=== PATIENT | female | born 1970 | race Caucasian/White ===

== ENCOUNTER 2023-12-22 06:37 | Outpatient (RCR) | payer BC, SELFPAY | END 2023-12-22 23:59 | disposition home or self-care (01) | LOC: RPT 06:37 | PROVIDERS: ATTENDING PHYSICIAN Family Medicine | DX: M25.511 Pain in right shoulder (principal); M25.512 Pain in left shoulder; Z73.6 Limitation of activities due to disability | CPT/HCPCS: 97110; 97162 ==

== ENCOUNTER → 2023-12-30 06:28 | Day surgery (SDC) | payer BC, SELFPAY | LOC: GI 06:28 | PROVIDERS: ATTENDING PHYSICIAN Internal Medicine Gastroenterology; FAMILY PHYSICIAN Family Medicine | DX: Z12.11 Encounter for screening for malignant neoplasm of colon (principal); Z86.010 Personal history of colon polyps; K64.8 Other hemorrhoids; K57.30 Diverticulosis of large intestine without perforation or abscess without bleeding; D12.4 Benign neoplasm of descending colon | CPT/HCPCS: 45380; 88305 ==

== ENCOUNTER 2024-07-30 11:30 | Inpatient (IN) | payer BC, SELFPAY ==
[2024-07-30] VITALS (54 sets, daily range): BP systolic 86–126; BP diastolic 51–84
--- NOTE | 2024-07-30 09:35 | ED.GENMED ---
History of Present Illness
<Christal Mccurdy PA-C - Last Filed: 07/30/24 14:46>
General
Chief Complaint: Fainting/Passed Out
Source: patient
Time Seen by Provider: 07/30/24 09:22
History of Present Illness
History of Present Illness:
54yoF with a history of depression and recent abdominoplasty procedure 6 days ago presenting via EMS for evaluation after a syncopal episode. Patient was feeling well when she woke up this morning and was able to do some chores around the house.
Patient was walking when she had a sudden onset of lightheadedness and diaphoresis. Patient felt like she could not catch her breath. She got her phone to call 911 and then had a syncopal episode. Episode was unwitnessed so unclear how long she
was unconscious for. Patient currently reports shortness of breath and chest pain. She does report left calf pain earlier today prior to her dizziness beginning. Patient had an abdominoplasty procedure [address] Gutierrez. Her only current
medications are Prozac and estradiol.
Past History
<Christal Mccurdy PA-C - Last Filed: 07/30/24 14:46>
Past History
ED Past Medical History: Psychiatric (Anxiety disorder)
ED Past Surgical History:
Social History
Tobacco: Non-smoker
Alcohol: None
Drug: None
Phy Exam
<Christal Mccurdy PA-C - Last Filed: 07/30/24 14:46>
Physical Exam
Physical Exam:
Ill appearing, pale
General Physical Exam
General Presentation: moderate distress
General Skin: dry and cool (Upper extremities cool to touch)
General Mental: alert
ENT Exam
ENT Exam: normocephalic
Cardiovascular Exam
Cardiovascular Exam: tachycardia
Pulmonary Exam
Pulmonary Exam: lungs clear, no rales, no crackles, no rhonchi, no wheezing and decreased breath sounds
Gastrointestinal Exam
Gastrointestinal Exam: soft, non distended and other (Appropriate tenderness s/p abdominoplasty. Incisions c/d/i. YEVGENIY drains in place with serosang output.)
Harvey Coma Scale
Eye Opening: Spontaneous
Verbal Response: Oriented
Motor Response: Obeys Commands
GCS Total Score: 15
Skin Exam
Skin Exam: pallor
Course
<Christal Mccurdy PA-C - Last Filed: 07/30/24 14:46>
Orders/Labs/Results
Orders:
Orders
07/30/24 09:16
Electrocardiogram (*1) Urgent
Reason for Study: Syncope
EKG- Treatment ONCE
07/30/24 09:32
CT Pe/abd/pel W Urgent
Comment:
Reason For Exam: Syncope, SOB, hypotension
07/30/24 09:34
0.9% Sodium Chloride 1000 ml [Nss] 1,000 ml IV BOLUS
07/30/24 09:36
CMP [Comprehensive Metabolic Panel] Urgent
Complete Blood Count/With Diff Urgent
NT-proBNP Urgent
Comment: ADD ON
PTT Urgent
Prothrombin Time Urgent
Troponin I Urgent
07/30/24 09:48
Propofol 1,000,000 Mcg/100 ml [Diprivan] 1,000,000 mcg in 100 ml .ROUTE .STK-MED
07/30/24 09:55
Heparin 5,300 units IV NOW STA
07/30/24 09:[address] Non Medication Order As Directed
Physician Order: PTT 6 hours after initial start of Heparin infusion
Above order entered?: Yes
07/30/24 09:59
0.9% Sodium Chloride 1000 ml [Nss] 1,000 ml IV BOLUS
07/30/24 10:00
Heparin 43846 Units/250 ml 25,000 units in 250 ml IV PER PROTOCOL
Weight to be used for heparin protocol in kilograms (kg):: 66.224
Protocol:: DVT/PE
PTT Goal Range to be used:: PTT 73 to 111 seconds
Order type:: Initial
INITIAL Infusion Dose (UNITS/KG/hr) & then follow protocol:: 18 units/kg/hr
Infusion Dose in UNITS/hr & then follow protocol (UNITS/hr):: 1,200
INFUSION RATE in mL/hr & then follow protocol (mL/hr):: 12
For DVT/PE algorithm, re-bolus for low PTT?: Yes
PTT less than or equal to 64 seconds:: Re-bolus 80 units/kg (max 10,000units). Increase by 300 units/hr
(+ 3mL/hr)
PTT 64.1 to 72.9 seconds:: Re-bolus 40 units/kg (max 5,000 units). Increase by 100 units/hr
(+ 1mL/hr)
PTT 73 to 111 seconds:: Target Range. No change in rate.
PTT 111.1 to 130.9 seconds:: Decrease rate by 100 units/hr (- 1 mL/hr)
PTT 131 to 199.9 seconds:: HOLD for 1 hr. Then decrease by 200 units/hr (- 2mL/hr)
PTT greater than or equal to 200 seconds:: HOLD for 2 hrs & Notify Provider. Then decrease by 300 units/hr
(- 3mL/hr)
Lab follow-up:: Each change, PTT q6h until 2 consecutive are therapeutic. Then
PTT daily.
07/30/24 10:09
Heparin 5,300 units IV PRN PRN
07/30/24 10:10
Heparin 2,600 units IV PRN PRN
07/30/24 10:20
Add On- LAB Stat
Tests Added?: proBNP
07/30/24 10:21
Type+Screen Urgent
07/30/24 10:23
Echo 2D MMode Color/Doppler Stat
Reason for Study: PE, syncope
07/30/24 10:43
ABO2 Urgent
BBK Wristband Number:
Associate notified that ABO2 has been ordered: [id number]
Date: 07/30/24
Time: 10:
Psychotherapist Social Worker ID: [id number]
07/30/24 11:10
Admit/Transfer Patient As Directed
Co-Sign Provider:
Level of Care: Inpatient admission
Assign to:: ICU
Physician / Group: pasricha/medicine
Diagnosis: b/l pe, submassive PE
Reason for Hospitalization: submassive pe
Expected length of stay greater than two midnights?: Yes
ELOS- Estimated Length of Stay in days: 3
I certify the patient meets the requirements for IP care: Yes
PRN Pain Medication Management As Directed
May give lesser potent ordered pain med per pt: Yes
preference::
Protocol:: Medication orders for pain may be administered in a
manner that supports deferring to patient preference
when the pt is:
- Requesting an ordered lesser potent pain medication.
Least to most potent pain medications are defined
as: acetaminophen < NSAID < tramadol < opioids
(morphine, oxycodone, hydromorphone).
- Requesting a lesser dose of the same medication IF
ORDERED.
- Requesting a less intrusive route of administration
if both routes are prescribed by the provider (PO <
IV).
07/30/24 11:13
Code Status As Directed
Resuscitation Status: Full Code
07/30/24 11:15
Alteplase [Cathflo/Activase] 5 mg Syringe [Syringe Non-Pump] 0 ml INTRAARTER IRAD
07/30/24 11:24
Consult Interventional Radiology [IRAD CONSULT] Urgent
Consulting Provider: Lex Hu
Was physician already notified: Yes
Reason for Consult/Procedure: PE
Acknowledgement that appropriate orders are entered: Yes
07/30/24 11:27
Heparin 1000 Units/500 ml [Heparin] 2,000 units in 1,000 ml .ROUTE .STK-MED
Lidocaine 2% [Xylocaine 2% Mdv] 20 ml .ROUTE .STK-MED ONE
07/30/24 12:00
0.9% Sodium Chloride 1000 ml [Nss] 990 ml Alteplase [Cathflo/Activase] 10 mg INF CATH 1 mg/hr
07/30/24 16:15
PTT Urgent
07/31/24 06:00
Hemoglobin A1c [Glycohemoglobin (HgbA1c)] IN AM
Abnormal Lab Results
07/30/24
09:36
WBC 14.6 H 10^3/uL
(4.8-10.8)
Hgb 10.1 L g/dL
(12.0-16.0)
Hct 31.5 L %
(37.0-47.0)
MCV 66.6 L fL
(81.0-99.0)
MCH 21.4 L pg
(27.0-31.0)
MCHC 32.1 L g/dL
(33.0-37.0)
RDW 14.9 H %
(11.5-14.5)
Abs Immat Gran (auto) 0.1 H 10^3/uL
(0-0.05)
Absolute Neuts (auto) 11.0 H 10^3/uL
(1.4-6.5)
Absolute Monos (auto) 0.9 H 10^3/uL
(0.1-0.6)
Neutrophils % 75.3 H %
(42.2-75.2)
Lymphocytes % 16.6 L %
(20.5-51.1)
Glucose 264 H mg/dl
(70-99)
Troponin I 0.114 H* ng/ml
Total Protein 5.6 L g/dl
(6.3-8.2)
07/30/24 09:36
07/30/24 09:36
Vital Signs
Initial and Last Documented VS:
Initial Vital Signs
Temp Pulse BP Pulse Ox
97.6 F 107 91/53 93
07/30/24 09:18 07/30/24 09:18 07/30/24 09:18 07/30/24 09:18
Last Documented Vital Signs
Temp Pulse Resp BP Pulse Ox
97.9 F 80 16 116/72 100
07/30/24 12:22 07/30/24 14:33 07/30/24 14:33 07/30/24 14:33 07/30/24 12:22
Froylt;Loc Avila, DO - Last Filed: 07/30/24 10:17>
Orders/Labs/Results
Orders:
Orders
07/30/24 09:16
Electrocardiogram (*1) Urgent
Reason for Study: Syncope
EKG- Treatment ONCE
07/30/24 09:32
CT Pe/abd/pel W Urgent
Comment:
Reason For Exam: Syncope, SOB, hypotension
07/30/24 09:34
0.9% Sodium Chloride 1000 ml [Nss] 1,000 ml IV BOLUS
07/30/24 09:36
CMP [Comprehensive Metabolic Panel] Urgent
Complete Blood Count/With Diff Urgent
NT-proBNP Urgent
Comment: ADD ON
PTT Urgent
Prothrombin Time Urgent
Troponin I Urgent
07/30/24 09:48
Propofol 1,000,000 Mcg/100 ml [Diprivan] 1,000,000 mcg in 100 ml .ROUTE .STK-MED
07/30/24 09:55
Heparin 5,300 units IV NOW STA
07/30/24 09:[address] Non Medication Order As Directed
Physician Order: PTT 6 hours after initial start of Heparin infusion
Above order entered?: Yes
07/30/24 09:59
0.9% Sodium Chloride 1000 ml [Nss] 1,000 ml IV BOLUS
07/30/24 10:00
Heparin 91650 Units/250 ml 25,000 units in 250 ml IV PER PROTOCOL
Weight to be used for heparin protocol in kilograms (kg):: 66.224
Protocol:: DVT/PE
PTT Goal Range to be used:: PTT 73 to 111 seconds
Order type:: Initial
INITIAL Infusion Dose (UNITS/KG/hr) & then follow protocol:: 18 units/kg/hr
Infusion Dose in UNITS/hr & then follow protocol (UNITS/hr):: 1,200
INFUSION RATE in mL/hr & then follow protocol (mL/hr):: 12
For DVT/PE algorithm, re-bolus for low PTT?: Yes
PTT less than or equal to 64 seconds:: Re-bolus 80 units/kg (max 10,000units). Increase by 300 units/hr
(+ 3mL/hr)
PTT 64.1 to 72.9 seconds:: Re-bolus 40 units/kg (max 5,000 units). Increase by 100 units/hr
(+ 1mL/hr)
PTT 73 to 111 seconds:: Target Range. No change in rate.
PTT 111.1 to 130.9 seconds:: Decrease rate by 100 units/hr (- 1 mL/hr)
PTT 131 to 199.9 seconds:: HOLD for 1 hr. Then decrease by 200 units/hr (- 2mL/hr)
PTT greater than or equal to 200 seconds:: HOLD for 2 hrs & Notify Provider. Then decrease by 300 units/hr
(- 3mL/hr)
Lab follow-up:: Each change, PTT q6h until 2 consecutive are therapeutic. Then
PTT daily.
07/30/24 10:09
Heparin 5,300 units IV PRN PRN
07/30/24 10:10
Heparin 2,600 units IV PRN PRN
07/30/24 10:20
Add On- LAB Stat
Tests Added?: proBNP
07/30/24 10:21
Type+Screen Urgent
07/30/24 10:23
Echo 2D MMode Color/Doppler Stat
Reason for Study: PE, syncope
07/30/24 10:43
ABO2 Urgent
BBK Wristband Number:
Associate notified that ABO2 has been ordered: [id number]
Date: 07/30/24
Time: 10:29
Psychotherapist Social Worker ID: [id number]
07/30/24 11:10
Admit/Transfer Patient As Directed
Co-Sign Provider:
Level of Care: Inpatient admission
Assign to:: ICU
Physician / Group: pasricha/medicine
Diagnosis: b/l pe, submassive PE
Reason for Hospitalization: submassive pe
Expected length of stay greater than two midnights?: Yes
ELOS- Estimated Length of Stay in days: 3
I certify the patient meets the requirements for IP care: Yes
PRN Pain Medication Management As Directed
May give lesser potent ordered pain med per pt: Yes
preference::
Protocol:: Medication orders for pain may be administered in a
manner that supports deferring to patient preference
when the pt is:
- Requesting an ordered lesser potent pain medication.
Least to most potent pain medications are defined
as: acetaminophen < NSAID < tramadol < opioids
(morphine, oxycodone, hydromorphone).
- Requesting a lesser dose of the same medication IF
ORDERED.
- Requesting a less intrusive route of administration
if both routes are prescribed by the provider (PO <
IV).
07/30/24 11:13
Code Status As Directed
Resuscitation Status: Full Code
07/30/24 11:15
Alteplase [Cathflo/Activase] 5 mg Syringe [Syringe Non-Pump] 0 ml INTRAARTER IRAD
07/30/24 11:24
Consult Interventional Radiology [IRAD CONSULT] Urgent
Consulting Provider: Lex Hu
Was physician already notified: Yes
Reason for Consult/Procedure: PE
Acknowledgement that appropriate orders are entered: Yes
07/30/24 11:27
Heparin 1000 Units/500 ml [Heparin] 2,000 units in 1,000 ml .ROUTE .STK-MED
Lidocaine 2% [Xylocaine 2% Mdv] 20 ml .ROUTE .STK-MED ONE
07/30/24 12:00
0.9% Sodium Chloride 1000 ml [Nss] 990 ml Alteplase [Cathflo/Activase] 10 mg INF CATH 1 mg/hr
07/30/24 16:15
PTT Urgent
07/31/24 06:00
Hemoglobin A1c [Glycohemoglobin (HgbA1c)] IN AM
Abnormal Lab Results
07/30/24
09:36
WBC 14.6 H 10^3/uL
(4.8-10.8)
Hgb 10.1 L g/dL
(12.0-16.0)
Hct 31.5 L %
(37.0-47.0)
MCV 66.6 L fL
(81.0-99.0)
MCH 21.4 L pg
(27.0-31.0)
MCHC 32.1 L g/dL
(33.0-37.0)
RDW 14.9 H %
(11.5-14.5)
Abs Immat Gran (auto) 0.1 H 10^3/uL
(0-0.05)
Absolute Neuts (auto) 11.0 H 10^3/uL
(1.4-6.5)
Absolute Monos (auto) 0.9 H 10^3/uL
(0.1-0.6)
Neutrophils % 75.3 H %
(42.2-75.2)
Lymphocytes % 16.6 L %
(20.5-51.1)
Glucose 264 H mg/dl
(70-99)
Troponin I 0.114 H* ng/ml
Total Protein 5.6 L g/dl
(6.3-8.2)
07/30/24 09:36
07/30/24 09:36
Vital Signs
Initial and Last Documented VS:
Initial Vital Signs
Temp Pulse BP Pulse Ox
97.6 F 107 91/53 93
07/30/24 09:18 07/30/24 09:18 07/30/24 09:18 07/30/24 09:18
Last Documented Vital Signs
Temp Pulse Resp BP Pulse Ox
97.9 F 80 16 116/72 100
07/30/24 12:22 07/30/24 14:33 07/30/24 14:33 07/30/24 14:33 07/30/24 12:22
<Christal Mccurdy PA-C - Last Filed: 07/30/24 14:46>
MDM/Problems Addressed
Differential Diagnosis Includes:
54yoF here after a syncopal episode this morning. Associated with CP and SOB. Recent abdominoplasty procedure 6 days ago. She is ill appearing and pale on exam. BP 86/51 on initial exam. She also reports L calf pain earlier today. High clinical
suspicion for acute pulmonary embolism. Likely saddle vs. high clot burden given syncopal episode.
Initial ED plan: IV access obtained and fluid bolus ordered. Cardiac labs and EKG obtained. Patient transported directly to CT for PE study after exam given acuity of illness.
<Christal Mccurdy PA-C - Last Filed: 07/30/24 14:46>
*EKG
Interpreted by ED Provider?: Yes
EKG Intrepretation Date: 07/30/24
Heart Rate: 99
Rate: normal
Rhythm: sinus
[place]: normal axis
Interval: normal interval
QRS Pattern: right bundle branch block (incomplete)
Ischemia: non-specific ST changes
*Critical Care Note
Total Time (30-74mins, 75-104mins- exclusive of procedures): 60
<Christal Mccurdy PA-C - Last Filed: 07/30/24 14:46>
Update Note
Update Note:
Dr. Avila called to CT due to clinical decompensation. Patient became acutely hypoxic in CT. CT shows saddle PE with large clot burden bilaterally. Respiratory called to bedside and she was placed on HFNC. IV heparin ordered with bolus. PERT
alert called. Plan for catheter directed thrombolysis by IR. Patient and sister updated on care plan. She was admitted for further management. BP stable at time of admission.
ED Attending Note
<Christal Mccurdy PA-C - Last Filed: 07/30/24 14:46>
-
Portions of this chart may have been created with voice recognition software.� Occasional wrong word or��sound alike� substitutions may have occurred due to the inherent limitations of voice recognition software.
<Loc Avila, - Last Filed: 07/30/24 10:17>
ED Attending Note
Patient seen and examined by attending physician: Yes
I performed the substantive portion of visit, reviewed & personally made and approve the management plan that is documented in note by myself or KAMAR.: Yes
ED Attending Note:
Patient presents with sob, dizziness and syncopal episode. Patient had abdominoplasty performed about 6 days ago. Currently patient is short of breath.
General: Awake, Alert, Oriented X3. poor color, appears ill
Vitals: Tachycardic, hypoxic
Head: Atraumatic
Eyes: Pupils equal, EOMI
Throat: Airway intact, no exudates
Neck: Trachea midline
Lungs: Clear and equal b/l
Heart: Regular rate, no murmurs
Abd: Soft, incisional tenderness, YEVGENIY drain no pulsatile mass
Neuro: Nonfocal
Skin: Warm, dry, no rash
Extremities: pulses equal b/l, no edema
1015 am. Patient seen by Kelin upon arrival. Patient sent immediately to CT because she had a high suspicion for PE. CT does show bilateral PE with significant clot burden, saddle embolus on the right and heart strain. Patient is hypoxic.
Fortunately she has not become hypotensive at this point. Immediately returning from CAT scan a PERT alert was called. Heparin was ordered. I communicated with Dr. Hu and Dr. Johnson and communicated the patient is critically ill and that
she might be a good candidate for catheter directed thrombolysis. They are reviewing the patient's imaging and will come evaluate the patient promptly. Patient currently receiving oxygen via high flow nasal cannula as well as a nonrebreather with
pulse ox in the high 80s. I do not believe intubation would help as this is a VQ mismatch that will exist regardless of intubation or not. The processes and the patient is likely to negatively affect her hemodynamics. Will therefore just support
her as much as possible with supplemental oxygen.
Discharge Plan
Departure
Patient Disposition: Admit
Date of Disposition: 07/30/24
Time of Disposition: 10:41
Presentation/result/management discussed w/ accepting MD/DO: Hospitalist
Discharge Problem:
Acute saddle pulmonary embolus, Syncope
Interventions
Interventions:
*Risk Screen - Suicide Last Done: 07/30/24 09:18
*General Assessment Last Done: 07/30/24 09:18
*Neglect/Abuse Screening Last Done: 07/30/24 09:18
ED- Fall Risk Assessment Last Done: 07/30/24 09:18
*ED COVID-19 Vaccine History Last Done: 07/30/24 09:18
*Nursing Disposition Last Done: 07/30/24 11:45
ED- Cardiac Assessment Last Done: 07/30/24 09:59
ED- Neurological Assessment Last Done: 07/30/24 10:30
Discharge Date and Time
Discharge Date/Time: 07/30/24 11:45
[2024-07-30 09:47] LABS: % Basophils 0.4 % (0-2); % Eosinophils 0.8 % (0-6); % Immature Granulocytes 0.5 % (0-0.5); % Lymphocytes 16.6 % (20.5-51.1); % Monocytes 6.4 % (1.7-9.3); % Neutrophils 75.3 % (42.2-75.2); Absolute Basophils 0.1 10^3/uL (0-0.2); Absolute Eosinophils 0.1 10^3/uL (0-0.7); Absolute Immature Granulocytes 0.1 10^3/uL (0-0.05); Absolute Lymphocytes 2.4 10^3/uL (1.2-3.4); Absolute Monocytes 0.9 10^3/uL (0.1-0.6); Hematocrit 31.5 % (37.0-47.0); Hemoglobin 10.1 g/dL (12.0-16.0); Mean Corp Hgb Conc. 32.1 g/dL (33.0-37.0); Mean Corpuscular Hgb 21.4 pg (27.0-31.0); Mean Corpuscular Volume 66.6 fL (81.0-99.0); Mean Platelet Volume 9.5 fL (7.4-10.4); Nucleated Red Blood Cells % 0 %; Platelet Count 161 10^3/uL (130-400); Red Blood Cell Count 4.73 10^6/uL (4.20-5.40); Red Cell Dist. Width 14.9 % (11.5-14.5); White Blood Cell Count 14.6 10^3/uL (4.8-10.8)
[2024-07-30 09:59] LABS: APTT 24.2 Sec (23.4-35.0)
[2024-07-30] MEDS: HEPARIN 5300 UNITS IV (10:01)
[2024-07-30] MEDS: NSS 1000 IV (10:02)
[2024-07-30 10:03] LABS: ALT (SGPT) 28 U/L (0-35); AST (SGOT) 34 U/L (14-36); Albumin 3.5 g/dl (3.5-5.0); Alkaline Phosphatase 53 U/L (38-126); Blood Urea Nitrogen 11 mg/dl (7-17); Calcium 8.5 mg/dl (8.4-10.2); Carbon Dioxide 22 mmol/L (22-30); Chloride 104 mmol/L (98-107); Glucose 264 mg/dl (70-99); Potassium 4.2 mmol/L (3.5-5.1); Sodium 137 mmol/L (135-145); Total Protein 5.6 g/dl (6.3-8.2); eGFR > 60.00
--- NOTE | 2024-07-30 10:12 | CON.INTV ---
Consultation
Consultation Request
Date/Time Consultation Requested: 07/30/2024 - 1000
Date/Time Consultation Performed: 07/30/20241004
Requesting Provider: Dr. Avila
Performing Provider: Dr. Johnson
Reason for Consultation: PERT Alert
Medical History
-
Chief Complaint: Passed out at home
History of Present Illness:
54-year-old female non-smoker with a past medical history of depression, anxiety, chronic seasonal allergic rhinitis, history of IBS with constipation, thalassemia minor minor, celiac disease, history of colon polyps, overactive bladder and recent
abdominoplasty 6 days ago now presents from home with syncopal event. She had a tummy tuck about 6-7 days ago. She says she woke up this morning and had some left lower calf pain, and then passed out at around 8:30 AM. In the ER she was afebrile
to 97.6 �F, tachycardic to 107, hypotensive to 91/53, and saturating 93% on 2 L/min nasal cannula. Labs showed leukocytosis to 14.6, anemia to 10.1, and hyperglycemic to 264. CTA chest, CT abdomen/pelvis with IV contrast was obtained. CTA chest
shows bilateral acute PE with large clot burden especially on the right with RV strain. Also hepatic + right renal cyst. PERT alert called. She was started on IV heparin.
When I saw the patient she was in bed, on high flow nasal cannula at 100% FiO2, 15 L/min and saturating 100%. Heart rate 96 and BP 111/82. She says her baseline SBP is around 95-100 mmHg. Her sister, Bhaskar, was at bedside -all questions were
answered. She currently feels okay although still has left-sided calf pain. She currently denies shortness of breath at rest, chest pain, GARCIA, nausea, fevers or chills. She does use oral contraceptives for menopause with combined estrogen +
progesterone. She denies a family history of DVT/PE. She had a recent abdominoplasty by Dr. Gutierrez with plastic surgery, which was done due to her having twins with diastasis recti.
PMHx: Depression, anxiety, recent abdominoplasty, chronic seasonal allergic rhinitis, history of IBS with constipation, thalassemia minor, celiac disease, overactive bladder, vitamin D deficiency, colon polyps
PSHx: History of , recent abdominoplasty 6 days ago
Past Medical History
Past Medical History: Other (Above as per HPI)
Past Surgical History: Other (Above as per HPI)
Social History
Tobacco: Former Smoker
Alcohol: Occasional
Drug: None
Family History
Family History: Cancer (Father: Basal cell carcinoma; paternal grandfather: Prostate cancer; Paternal grandmother: Lung cancer) and Other (Mother: Thalassemia; son: Thalassemia)
Allergies / Home Medications
Allergies
Allergy/AdvReac Type Severity Reaction Status Date / Time
codeine Allergy Itching Verified 08/14/19 22:10
gluten Allergy Itching Verified 08/14/19 22:10
pepper (genus Capsicum) Allergy Rash Verified 08/14/19 22:10
Home Medications
�Medication �Instructions �Recorded �Confirmed �Last Taken �Type
cefuroxime axetil 250 mg tablet 250 mg PO BID #14 tabs 08/15/19 Unknown Rx
Review of Systems
-
History Source: Patient
All other systems: Negative unless noted
Vitals / Labs / Diagnostic Testing
Vital Signs
Temp Pulse BP Pulse Ox
97.6 F 107 91/53 93
07/30/24 09:18 07/30/24 09:18 07/30/24 09:18 07/30/24 09:18
Lab Data
07/30/24 09:36
07/30/24 09:36
Diagnostic Testing:
Physical Exam
-
HEENT: Normocephalic and Anicteric
Cardiovascular: S1/S2 and Peripheral Edema (LLE trace edema; no edema on RLE)
Respiratory: Wheeze (negative), Rales (negative), Rhonchi (negative) and Non-Labored Respirations
GI: Soft, Non Distended, Tender (Generalized postoperative abdominal tenderness to palpation) and Normal Bowel Sounds
Neurology: AO x 3 and Tremors (negative)
Skin: Warm and Dry
General: Respiratory Distress (negative), Fever (negative) and Chills (negative)
Assessment
-
Assessment: 54-year-old female non-smoker with a past medical history of depression, anxiety, chronic seasonal allergic rhinitis, history of IBS with constipation, thalassemia minor minor, celiac disease, history of colon polyps, overactive bladder
and recent abdominoplasty 6 days ago now presents from home with syncopal event. She had a tummy tuck about 6-7 days ago. In the ER she was afebrile to 97.6 �F, tachycardic to 107, hypotensive to 91/53, and saturating 93% on 2 L/min nasal cannula.
Labs showed leukocytosis to 14.6, anemia to 10.1, and hyperglycemic to 264. CTA chest, CT abdomen/pelvis with IV contrast was obtained. CTA chest shows bilateral acute PE with large clot burden especially on the right with RV strain. Also
hepatic + right renal cyst. She was started on IV heparin, and PERT alert called. She is now being brought for IR intervention and then being admitted to the ICU for further monitoring. Health Center Manager/pulmonary service is consulted for additional
management/recommendations.
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
Impression:
#Acute massive bilateral pulmonary embolism with RV strain - suspect provoked due to combined oral contraceptive use with recent abdominoplasty
#Elevated troponin likely due to above
#Suspected LLE DVT
#Recent abdominoplasty s/p childbirth c/b diastasis recti
#Menopausal on combined oral contraceptives
#Leukocytosis likely reactive
#Anemia with history of thalassemia minor
#Borderline thrombocytopenia
#Hyperglycemia
Plan:
- Continue with IV heparin
- Stat echo to assess RV function and PA-pressures
- Consult IR for catheter directed thrombolysis
- Continue to trend troponin until it peaks
- Check LE duplex
- Eventual outpatient hematology evaluation for hypercoagulable workup
- Maintain SpO2 >90-94% and titrate down FiO2 and flow rate on HFNC as tolerated
- Maintain MAP>65
- Replete electrolytes with K>4, Mg>2
- Maintain euglycemia with goal BG 140-180
- Trend H/H and transfuse if needed to keep Hb>7g/dL; kep plt>20k, unless there is concern for bleeding then keep plt>50k
- prn nebulized bronchodilators - not currently bronchospastic
- Incentive spirometer encouraged 10x per hour for at least 4 hrs a day
- DVT ppx
Critical care statement: A total of 40 minutes of critical care time was provided for this patient today. This includes management of unstable vital signs, evaluation of the patient at bedside, reviewing the patient's pertinent medical records
including radiographs, microbiology, laboratory evaluations, and discussion with primary team, consultants, pharmacy, nutrition, physical therapy, case management, charge nurse, critical care nursing, and respiratory therapy.
Data:
CTA Chest/CT Abd/Pelvis with IV contrast 07/30/2024:
1).There are large bilateral central pulmonary emboli including a bandlike area of subtle embolus extending across the main pulmonary artery
2). There are hepatic and right renal cysts
[2024-07-30] MEDS: HEPARIN 25000 UNITS/250 ML IV (10:14)
[2024-07-30 10:19] LABS: Troponin I 0.114 ng/ml
[2024-07-30 11:07] LABS: NT-proBNP 591 pg/ml
[2024-07-30] MEDS: CATHFLO/ACTIVASE 1000 MG INF CATH ×2 (12:55→21:51)
--- NOTE | 2024-07-30 12:59 | W.PN.UPDATE ---
Update Note
Progress Note Update
- Catheter directed thrombolysis initiated. 10 cm long infusion catheter placed into R main pulmonary artery terminating in RLL artery which corresponds to most significant clot burden on CTA
- Pt tolerated well. Pulm artery pressure of 45/6 (map 24).
- Bolus dose of 5mg tPA given. tPA to be administered at 1 mg/hr, systemic heparin at 600 mL/hr.
- Plan for catheter check tomorrow morning.
- Please keep close attention to indwelling surgical drains, monitor for increasing bloody output
- Sister updated.
--- NOTE | 2024-07-30 13:35 | PTCARENOTE ---
Addendum entered by Tomasa Arguello RN 07/30/24 19:36:
Arrived to ICU with left calf > right calf. Good DP/PT pulses on the left foot, palpable DP on the right, weak palpable on the right PT but verified with doppler.
Original Note:
Pt arrived from [facility] via bed. Strict orders for her current position which is flat, with pillow under her right knee. She is awake and alert. HFNC 55liters/100% FiO2 with pulse ox 100%. Respiratory therapist at the bedside tapering oxygen as
ordered. Right AC#18g with Heparin at set rate of 600 units/hr. Right femoral 5fr venous sheath with bulky gauze dressing intact with alteplase @100ml/hr. Unable to run KVO in introducer, order in place. Left AC#18g pre-hospital site capped.
Lungs CTA anteriorly, no SOB, denies chest pain or numbness or tingling of her right lower extremity. +BSx4. Pt stated that since her surgery she has been moving her bowels QOD but typically daily. Orders for Sultana. Bladder scanned for 566ml's.
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 Right and Left lower abdominal YEVGENIY drains sutured in place. Drainage SS with R>L. Dr. Gutierrez
arrived at the bedside and stripped both YEVGENIY drains. He stated to strip them daily and to place antibiotic ointment on the umbilical sutures. He also ordered antibiotics that are to be continued from her abdominoplasty. Pt and her sister were
informed of the plan of care. Pt is aware to call for RN if Chest Pain, SOB, numbness or tingling occur. Safe environment maintained. Supportive care given.
--- NOTE | 2024-07-30 14:05 | W.PN.PLAS ---
Progress Note
Subjective Data
Pt seen and examined. Chart and studies reviewed. Discussion with IR Dr. Hu.
Pt POD 6 s/p abdominoplasty with suction assisted lipectomy waist. Post op course unremarkable. Seen in office POD 1 with drain totals appropriate and ambulating pain controlled.
Text me this am with fall LOC. Called 911. Transported to found to have hypoxia and PE. Pt relays feeling pain in the LLE calf this am and performed massage to this area prior to syncope. She noted pain in calf to be 'different.' Drain totals
steadily decreasing per patient - 'minimal' this am.
Objective Data
Vital Signs
Temp Pulse Resp BP Pulse Ox
97.9 F 87 16 125/80 100
07/30/24 12:22 07/30/24 13:00 07/30/24 13:00 07/30/24 13:00 07/30/24 12:22
Lab Results
07/30/24 09:36
07/30/24 09:36
Physical Exam
Wound:
Pt lying supine awake alert and oriented. Smiling. Respiratory Therapist changed from high flow to 6L and sats at 98% Incision CDI. Drains with scant sero sang. Compression garment previously removed.
Wound: Incision Intact: No
Surgical Site: Swelling: No and Hematoma: No
Assessment / Plan
POD 6 with PE.
IR and CC/ Pulmonary care much appreciated. IR states monitor right pressures. Re-eval in the morning.
Pt anticoagulated. Monitor drain output and clinical exam. Garment removed for IR procedure. Will re-apply once approved by IR.
Cont antibiotic proph with drains in. Pt was on Keflex 500mg bid as outpt.
Pain control.
--- NOTE | 2024-07-30 14:43 | HPS.HSE ---
Family Physician
-
Family Physician: Edd Arreola
Chief Complaint
-
Loss of consciousness, hypoxia
History of Present Illness
54-year-old female, non-smoker although on progesterone and estradiol, depression, anxiety, IBS, thalassemia minor, celiac disease, colon polyps, overactive bladder and recent abdominoplasty 6 days ago on prophylactic antibiotics now presents for
syncopal episode. Postop, patient began to feel left lower calf pain. Patient was massaging the area today and subsequently passed out approximately at 8:30 AM. Patient noted to be hypoxic in the 70s, saturating above 92% on high flow nasal
cannula, hypotensive 91/53, tachycardic 107 bpm, afebrile. Labs remarkable for white count of 14.6, hemoglobin 10.1, hyperglycemia 264. CT imaging had shown bilateral acute PE with large clot burden especially in the right with RV strain. Of note
also had hepatic and right renal cyst. PERT team was called, IV heparin initiated. Patient mentating well, speaking in full sentences, blood pressure improved. Family history of DVT/PE. Troponin 0.114, proBNP 5591. Cath directed thrombolysis
initiated, tolerated well. Will evaluate catheter check tomorrow.
Medical History
Past Medical History
Past Medical History: Reports Other ( Depression, anxiety, recent abdominoplasty, chronic seasonal allergic rhinitis, history of IBS with constipation, thalassemia minor, celiac disease, overactive bladder, vitamin D deficiency, colon polyps)
Past Surgical History: Reports Other
Additional Past Surgical History:
History of , recent abdominoplasty 6 days ago
Social History
Tobacco: Former Smoker
Alcohol: Occasional
Drug: None
Family History
Family History: Other (Cancer (Father: Basal cell carcinoma; paternal grandfather: Prostate cancer; Paternal grandmother: Lung cancer) and Other (Mother: Thalassemia; son: Thalassemia))
Allergies / Home Medications
Allergies reflects when Allergies were last updated in [employer].
Home Medications with original date entered in [employer]
Allergy/Medication List:
Allergies
Allergy/AdvReac Type Severity Reaction Status Date / Time
codeine Allergy Itching Verified 08/14/19 22:10
gluten Allergy Itching Verified 08/14/19 22:10
pepper (genus Capsicum) Allergy Rash Verified 08/14/19 22:10
Home Medications
cefuroxime axetil 250 mg tablet 250 mg PO BID #14 tabs 08/15/19
Prozac 07/30/24
estradiol 07/30/24
progesterone 07/30/24
trazodone 07/30/24
Review of Systems
-
History Source: Patient
A 12 point ROS was completed and negative except as noted: Yes
Physical Exam
Vital Signs
Vital Signs
Temp Pulse Resp BP Pulse Ox
97.9 F 80 16 116/72 100
07/30/24 12:22 07/30/24 14:33 07/30/24 14:33 07/30/24 14:33 07/30/24 12:22
Physical Exam
General: Well Developed, Well Nourished and No Apparent Distress
HEENT: NormoCephalic
Respiratory: Clear and Other (HFNC)
Cardiac: S1/S2 and Tachycardia
GI: Non Tender
Musculoskeletal: No Clubbing
Skin: Warm
Neuro: Awake, Alert, Oriented and AO x 3
Hematologic/Lymphatic: No Lymphadenopathy
Psych: Calm
Laboratory Results
-
07/30/24 09:36
07/30/24 09:36
Laboratory Results
PT 14.0 Sec (11.4-14.6) 07/30/24 09:36
INR 1.10 07/30/24 09:36
APTT 24.2 Sec (23.4-35.0) 07/30/24 09:36
Total Bilirubin 1.0 mg/dl (0.2-1.3) 07/30/24 09:36
AST 34 U/L (14-36) 07/30/24 09:36
ALT 28 U/L (0-35) 07/30/24 09:36
Alkaline Phosphatase 53 U/L (38-126) 07/30/24 09:36
Troponin I 0.114 ng/ml H* 07/30/24 09:36
Data Reviewed
-
CT Scan: Image Personally Visualized and interpreted and Report Reviewed by me
Lab Data: Labs Reviewed by me
Impression/Plan
-
IMPRESSION:
54-year-old female, non-smoker although on progesterone and estradiol, depression, anxiety, IBS, thalassemia minor, celiac disease, colon polyps, overactive bladder and recent abdominoplasty 6 days ago on prophylactic antibiotics now presents for
syncopal episode found to have b/l submassive PEs.
PLAN:
#Submassive pulmonary embolisms
� Culprit is recent postsurgical complication as well as being on progesterone/estradiol, family history
� CTA with bilateral acute PE with large clot burden, with evidence of RV strain on CT
� Catheter directed thrombolysis today 07/30
� Follow-up fibrinogen, continue heparin drip and tPA protocol
� Troponin 0.114, continue to trend until peak
� proBNP 591
� Follow-up echo
� Follow-up lower extremity Dopplers
� Follow-up hematological evaluation outpatient
� Pain control�will hold off on progesterone/estradiol until cleared by hematology outpatient
# Nonischemic troponin elevation
� Follow-up troponins, trend
� Echocardiogram
#Leukocytosis
� Mostly reactive
� Monitor fever curve, white count
#Abdominoplasty
- 6 days post op
� Plastic surgery on board
� Continue prophylactic antibiotics
#Hepatic and right renal cyst
� Follow-up outpatient
#DVT prophylaxis
� Heparin drip
[2024-07-30 18:59] LABS: PT 14.1 Sec (11.4-14.6)
[2024-07-30 19:00] LABS: APTT 33.5 Sec (23.4-35.0); Fibrinogen 409 MG/DL (199-459)
--- NOTE | 2024-07-30 19:01 | PTCARENOTE ---
Dr. Johnson notified that ultrasound of his right L/E cannot be performed due to strict limb restrictions. Ok for radio/tv technician to proceed with the left L/E ultrasound.
--- NOTE | 2024-07-30 20:00 | PTCARENOTE ---
Received pt via handoff. Pt AOx3, JOEL but has orders to remain flat and keep catheter extremity site straight. Pulses all present on palpation. 99% on 3 Liters midflow. Hypoactive bowel sounds, round and soft. Skin surgery sites documented on
flowsheet. YEVGENIY drains draining serous fluid. Right femoral 5fr venous sheath with bulky gauze dressing intact with alteplase @100ml/hr. Sultana catheter CDI draining clear yellow urine. Heparin gtt running see flowsheet. Family at bedside and call ocasio
within reach.
[2024-07-30] MEDS: KEFLEX 500 MG PO (20:13)
[2024-07-30 22:38] LABS: Hematocrit 27.4 % (37.0-47.0); Hemoglobin 9.2 g/dL (12.0-16.0)
[2024-07-30] MEDS: DESYREL 100 MG PO (23:16)
[2024-07-31] VITALS (25 sets, daily range): BP systolic 65–125; BP diastolic 47–84
--- NOTE | 2024-07-31 | PTCARENOTE ---
All systems reassessed, Pt in good spirits. No changes in status, will continue to monitor.
[2024-07-31 00:53] LABS: INR 1.13; PT 14.4 Sec (11.4-14.6)
[2024-07-31 00:54] LABS: Fibrinogen 383 MG/DL (199-459)
[2024-07-31] MEDS: TYLENOL 650 MG PO ×2 (03:46→09:48)
--- NOTE | 2024-07-31 04:16 | PTCARENOTE ---
Pt c/o lower back pain from lying flat so long. Tylenol given PO. Will continue to monitor.
[2024-07-31 05:38] LABS: Hematocrit 28.3 % (37.0-47.0); Hemoglobin 9.3 g/dL (12.0-16.0); Mean Corp Hgb Conc. 32.9 g/dL (33.0-37.0); Mean Corpuscular Hgb 22.1 pg (27.0-31.0); Mean Corpuscular Volume 67.4 fL (81.0-99.0); Mean Platelet Volume 10.8 fL (7.4-10.4); Platelet Count 155 10^3/uL (130-400); Red Cell Dist. Width 14.6 % (11.5-14.5); White Blood Cell Count 7.2 10^3/uL (4.8-10.8)
[2024-07-31 05:47] LABS: INR 1.06; PT 13.6 Sec (11.4-14.6)
[2024-07-31 05:48] LABS: Fibrinogen 363 MG/DL (199-459)
[2024-07-31 05:49] LABS: APTT 30.5 Sec (23.4-35.0)
[2024-07-31 06:04] LABS: Blood Urea Nitrogen 7 mg/dl (7-17); Calcium 8.6 mg/dl (8.4-10.2); Carbon Dioxide 26 mmol/L (22-30); Chloride 106 mmol/L (98-107); Glucose 112 mg/dl (70-99); Magnesium 1.9 mg/dl (1.6-2.3); Potassium 4.3 mmol/L (3.5-5.1); Sodium 139 mmol/L (135-145); eGFR > 60.00
[2024-07-31 06:15] LABS: Troponin I 0.629 ng/ml
[2024-07-31] MEDS: CATHFLO/ACTIVASE 1000 MG INF CATH (07:18)
--- NOTE | 2024-07-31 07:27 | W.PN.INTV ---
Today's Communication / Plan
Recommendations
s/p tPA, sheath removed by IR
Now on IV heparin, can transition to Eliquis pending cost/ECHO
ECHO to be done today
Duplex reviewed with LLE DVT
OP management recommended
Can transfer to tele now, we will follow
Assessment
-
54-year-old female non-smoker with a past medical history of depression, anxiety, chronic seasonal allergic rhinitis, history of IBS with constipation, thalassemia minor minor, celiac disease, history of colon polyps, overactive bladder and recent
abdominoplasty 6 days ago now presents from home with syncopal event. She had a tummy tuck about 6-7 days ago. In the ER she was afebrile to 97.6 �F, tachycardic to 107, hypotensive to 91/53, and saturating 93% on 2 L/min nasal cannula. Labs
showed leukocytosis to 14.6, anemia to 10.1, and hyperglycemic to 264. CTA chest, CT abdomen/pelvis with IV contrast was obtained. CTA chest shows bilateral acute PE with large clot burden especially on the right with RV strain. Also hepatic +
right renal cyst. She was started on IV heparin, and PERT alert called. She is now being brought for IR intervention and then being admitted to the ICU for further monitoring. Food Service Utility Worker/pulmonary service is consulted for additional
management/recommendations.
Acute massive bilateral pulmonary embolism with RV strain - suspect provoked due to combined oral contraceptive use with recent abdominoplasty
Elevated troponin likely due to above
LLE DVT-nonocclusive
Recent abdominoplasty s/p childbirth c/b diastasis recti
Menopausal on combined oral contraceptives
Leukocytosis likely reactive
Hyperglycemia
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
Depression, anxiety
Chronic seasonal allergic rhinitis
History of IBS with constipation
Celiac disease
Overactive bladder
Vitamin D deficiency
Colon polyps
Anemia with history of thalassemia minor
Plan
s/p tPA by IR 07/30/24
Continue with IV heparin
Sheath removed
No prior history of lung disease
prn nebulized bronchodilators - not currently bronchospastic
Incentive spirometer encouraged
Massive PE with strain on presentation
Stat echo to assess RV function and PA-pressures
Continue to trend troponin until it peaks
Check LE duplex-- Positive for LLE DVT
Eventual outpatient hematology evaluation for hypercoagulable workup
Maintain MAP>65
Remains on midflow, 99%
Maintain SpO2 >90-94% and titrate down FiO2
Replete electrolytes with K>4, Mg>2
Maintain euglycemia with goal BG 140-180
History of anemia
Hb 9.3 from 10.1, baseline 11
Trend H/H and transfuse if needed to keep Hb>7g/dL; kep plt>20k, unless there is concern for bleeding then keep plt>50k
Diagnostic Data
CTA Chest/CT Abd/Pelvis with IV contrast 07/30/2024: 1).There are large bilateral central pulmonary emboli including a bandlike area of subtle embolus extending across the main pulmonary artery
2). There are hepatic and right renal cysts
Duplex 07/30/24- IMPRESSION: Nonocclusive thrombus within the gastrocnemius vein within the left calf, in this patient with pulmonary embolism.
-----
Critical care statement: A total of 45 minutes of critical care time was provided for this patient today. This includes management of unstable vital signs, evaluation of the patient at bedside, reviewing the patient's pertinent medical records
including radiographs, microbiology, laboratory evaluations, and discussion with primary team, consultants, pharmacy, nutrition, physical therapy, case management, charge nurse, critical care nursing, and respiratory therapy.
Subjective Dataa
Subjective Data
Date of Service:
Date of Service: July 31, 2024
Chief Complaint: Food Service Utility Worker Follow Up
Subjective:
Doing well today, no acute events ON
Off tPA, sheath removed
Stable on RA
On IV heparin
Objective Data
Data Reviewed
Vital Signs / I&O / Oxygen:
Vital Signs
Temp Pulse Resp BP Pulse Ox
99.2 F 73 15 107/47 99
07/31/24 06:06 07/31/24 06:04 07/31/24 06:04 07/31/24 06:04 07/31/24 06:04
Intake and Output
07/30/24 07/31/24 08/01/24
06:59 06:59 06:59
Intake Total 4282 / 4282
Output Total 3360 / 3360
Balance 922 / 922
SaO2 99
Nasal Cannula flow liters per 3
minute
Physical Exam
General: Comfortable and Other (NAD)
HEENT: Normocephalic, Anicteric and Moist Mucous Membranes
Cardiovascular: S1-S2 and Regular Rhythm
Respiratory: Clear and Non-Labored Respirations
GI: Soft, Non Distended and Non Tender
Neurology: Awake, Alert, AO x 3 and No Motor Deficits
Skin: Warm, Dry and Good Color
Labs/Micro/Reports
Lab Data
07/31/24 05:25
07/31/24 05:25
Laboratory Results
07/30/24 07/30/24 07/30/24
09:36 16:15 18:38
PT 14.0 14.1
INR 1.10 1.10
APTT 24.2 Cancelled 33.5
07/31/24 07/31/24
00:33 05:25
PT 14.4 13.6
INR 1.13 1.06
APTT 30.5
--- NOTE | 2024-07-31 07:32 | W.PN.HOSP.TC ---
Today's Communication/Plan
-
see plan
Assessment / Plan
Assessment / Plan
MS. Jeannie Felton is a 54 yo woman with hx Depression/anxiety, thalassemia minor, celiac disease, recent abdominoplasty 6 days ago on prophylactic antibiotics presents to the ER with syncope and calf pain, found to be hypoxic on arrival with CTA
showing bilateral acute PE with large clot burden and RV Strain.
LE US 07/30:
IMPRESSION: Nonocclusive thrombus within the gastrocnemius vein within the left calf, in this patient with pulmonary embolism.
IMPRESSION:
1).There are large bilateral central pulmonary emboli including a bandlike area of subtle embolus extending across the main pulmonary artery
2). There are hepatic and right renal cysts
#Submassive pulmonary embolisms
Hypoxic Respiratory Insufficiency
� Culprit is recent postsurgical complication as well as being on progesterone/estradiol, family history
� CTA with bilateral acute PE with large clot burden, with evidence of RV strain on CT
� s/p Catheter directed thrombolysis 07/30; catheter check this AM
� Continue heparin drip and tPA protocol
� Troponin 0.114, continue to trend until peak
� proBNP 591
� Follow-up echo
� Follow-up lower extremity Dopplers
� Follow-up hematological evaluation outpatient
- Guidance Consultant consult
� Pain control�will hold off on progesterone/estradiol until cleared by hematology outpatient
# Nonischemic troponin elevation
� Follow-up troponins, trend
� Echocardiogram
#Leukocytosis
� Mostly reactive
� Monitor fever curve, white count
#Abdominoplasty
- now 7 days post op
� Plastic surgery on board
� Continue prophylactic antibiotics
#Hepatic and right renal cyst
� Follow-up outpatient
#DVT prophylaxis
� Heparin drip
Anticipated Discharge: > 48 hours
Subjective/Interval History
-
Date of Service: July 31, 2024
uncomfortable laying flat
Objective Data
-
Labs:
Laboratory Results
07/30/24 07/31/24 07/31/24
22:25 00:33 05:25
WBC 7.2
Hgb 9.2 L 9.3 L
Hct 27.4 L 28.3 L
Plt Count 155
PT 14.4 13.6
INR 1.13 1.06
APTT 30.5
Sodium 139
Potassium 4.3
Chloride 106
Carbon Dioxide 26
BUN 7
Creatinine 0.7
Glucose 112 H
Calcium 8.6
07/31/24 07/31/24
12:00 18:00
WBC
Hgb
Hct
Plt Count
PT Pending Pending
INR Pending Pending
APTT
Sodium
Potassium
Chloride
Carbon Dioxide
BUN
Creatinine
Glucose
Calcium
Vital Signs:
Vital Signs
Temp Pulse Resp BP Pulse Ox
99.2 F 73 15 107/47 99
07/31/24 06:06 07/31/24 06:04 07/31/24 06:04 07/31/24 06:04 07/31/24 06:04
I&O
07/30/24 07/31/24 08/01/24
06:59 06:59 06:59
Intake Total 4282 / 4282
Output Total 3360 / 3360
Balance 922 / 922
Review of Systems
-
History Source: Patient
All other systems: Reviewed and negative
Physical Exam
-
General: No Apparent Distress
HEENT: PERRLA
Respiratory: Clear to Auscultation; Negative Wheezes
Cardiac: Regular Rhythm and S1/S2
GI: Soft and Nontender
Musculoskeletal: No Edema and Other (right groin catheter in place )
Skin: Warm and Dry; Negative Rash
Neuro: AO x 3
Psych: Calm
Data Reviewed
-
Diagnostic Radiology: Report Reviewed by me
[2024-07-31 08:22] LABS: Glycohemoglobin (HgbA1c) 5.2 % (4.0-5.6)
[2024-07-31] MEDS: KEFLEX 500 MG PO ×2 (09:48→20:21)
--- NOTE | 2024-07-31 10:05 | W.PN.UPDATE ---
Update Note
Progress Note Update
- Catheter check performed earlier this morning with termination of therapy.
- Repeat pressure check of 15/4 mmHg (map 8). Significantly improved compared to yesterday (45/6). Clinically much improved. Angiographic imaging felt unnecessary.
- R groin sheath removed. R leg flat for one hour post (should be ok to move now).
- Restart heparin per primary team management.
[2024-07-31] MEDS: HEPARIN 25000 UNITS/250 ML IV ×2 (10:30→17:03)
--- NOTE | 2024-07-31 10:52 | CM ---
Addendum entered by Mary Rausch 07/31/24 15:04:
CM consult for Eliquis pricing
Call with [facility] [phone]
Consult for Eliquis 10 mg dosage
Per [facility] pharmacists, Eliquis only comes in 5 mg or 2.5mg
5 mg 28 pills total 7 days- $35 retail
5 mg BID 30 days- $35 retail
5 mg BID 90 days- $90 mail order
Update to Dr. Sewell/TT
Original Note:
CM met with pt and son/Steve bedside
Pt resides alone in a 2SH with 2STE
1st floor set up
Pt is independent with her ambulations
Denies use of DMEs and financial insecurities
PCP- Edd Arreola
Rx- Josefina/Andreas
Discharge Disposition- home, anticipate no needs
--- NOTE | 2024-07-31 13:57 | PTCARENOTE ---
Patient continues to progress thru day. Ambulating room to bathroom to chair. 100% of lunch taken family brought in. Updated pharmacy home rec patient to update some doses with MD. Presently having echo. Await transfer update. Heparin gtt as per
orders follow up labs as ordered. Bench Molder Apprentice update and follow up orders.
--- NOTE | 2024-07-31 16:01 | CON.ONC ---
Impression
Impression
Acute massive bilateral pulmonary embolism with RV strain - suspect provoked due to combined oral contraceptive use with recent abdominoplasty
Elevated troponin
LLE nonocclusive gastrocnemius thrombus
Recent abdominoplasty
Menopausal on combined oral contraceptives
Anemia with history of thalassemia minor, recent surgery, and celiac disease
Plan
Plan
Provoked VTE, 1st lifetime event -on heparin gtt, recommend at least 6 months DOAC at discharge
baseline ddimer in order for PCP to use DASH score for consideration of continued ppx vs cessation of doac after 6 months -PCP can refer to hematology prn
avoid hormone use discussed
check iron studies -has tolerated oral iron in past
Routine malignancy screening with PCP
Hematology will sign off, thank you for this consult
Patient History
History of Present Illness
54yo F presented with syncopal event. She had an abdominoplasty last week. She reports that she experienced left calf pain this morning as well. ER evaluation was notable for tachycardia, hypotension, and hypoxia. Labs showed leukocytosis to
14.6, anemia to 10.1. CTA chest, CT abdomen/pelvis shows bilateral acute PE with large clot burden especially on the right with RV strain. She was started on IV heparin and underwent catheter directed thrombolysis on 07/30/2024.
Denies prior personal thrombosis or family history of thrombosis.
Clinically, she denies shortness of breath at rest, chest pain, GARCIA, nausea, fevers or chills. Denies changes in weight, appetite, or bowel habits.
Past-Medical/Surgical History
PMHx: Depression, anxiety, recent abdominoplasty, chronic seasonal allergic rhinitis, history of IBS with constipation, thalassemia minor, celiac disease, overactive bladder, vitamin D deficiency, colon polyps
PSHx: History of , recent abdominoplasty 6 days ago
Social never smoker, deneis ETOH or recreational drugs. Employeed
Family Father: Basal cell carcinoma; paternal grandfather: Prostate cancer; Paternal grandmother: Lung cancer. Mother: Thalassemia; son: Thalassemia
Patient Medication
�Medication �Instructions �Recorded �Confirmed �Last Taken �Type
cefuroxime axetil 250 mg tablet 250 mg PO BID #14 tabs 08/15/19 07/31/24 07/29/24 22:00 Rx
estradiol 1 mg tablet 1 mg PO DAILY 07/30/24 07/31/24 07/29/24 22:00 History
fluoxetine 20 mg capsule (Prozac) 20 mg PO DAILY 07/30/24 07/31/24 07/29/24 08:00 History
progesterone 07/30/24 Unknown History
trazodone 100 mg tablet 100 mg PO HS 07/30/24 07/31/24 07/29/24 23:00 History
Active Medications
Generic Name Dose Route Start Last Admin
Trade Name Freq PRN Reason Stop Dose Admin
Acetaminophen 650 mg 07/30/24 14:48 07/31/24 09:48
Acetaminophen 325 Mg Tablet PO 08/27/24 14:47 650 mg
Q4HPRN PRN Administration
mild pain/temp > 100.4 F
Cephalexin HCl 500 mg 07/30/24 20:00 07/31/24 09:48
Cephalexin 500 Mg Capsule PO 500 mg
BID MAURICIO Administration
Heparin Sodium 5,400 units 07/31/24 12:05
Heparin 80 Units/Kg Iv Rebolus IV 08/28/24 12:04
Q6HPRN PRN
PTT < OR = 64 seconds
Heparin Sodium 2,700 units 07/31/24 12:06
Heparin 40 Units/Kg Iv Rebolus IV 08/28/24 12:05
Q6HPRN PRN
PTT = 64.1 to 72.9 seconds
Hydromorphone HCl 0.5 mg 07/30/24 14:48
Hydromorphone 0.5 Mg/0.5 Ml Syringe IV 08/13/24 14:47
Q4HPRN PRN
severe pain
Heparin Sodium 25,000 units in 250 mls @ 0 mls/hr 07/31/24 10:15 07/31/24 10:30
Heparin 46878 Units/250 Ml IV 250 mls
PER PROTOCOL MAURICIO Administration
Protocol
Per Protocol
Morphine Sulfate 2 mg 07/30/24 14:48
Morphine 2 Mg/Ml Syringe IV 08/13/24 14:47
Q4HPRN PRN
moderate pain
Sodium Chloride 0 flush 07/30/24 14:00
Sodium Chloride 0.9% (Flush) Syringe IV 08/27/24 13:59
PER PROTOCOL MAURICIO
Trazodone HCl 100 mg 07/31/24 22:00 07/30/24 23:16
Trazodone 100 Mg Tablet PO 08/28/24 21:59 100 mg
HS MAURICIO Administration
Review of Systems
-
Review of systems notable for HPI, otherwise negative
Physical Exam
-
General: Well Developed, Well Nourished and No Apparent Distress
HEENT: Moist Mucous Membranes; Negative Jaundice
Cardiology: Normal Sinus Rhythm
Pulmonary: Clear
GI: Soft
Extremities: Pulses Present; Negative Edema
Neurology: Non Focal
Skin: Warm
Psych: Calm
Labs
Lab Results
WBC 7.2 10^3/uL (4.8-10.8) 07/31/24 05:25
RBC 4.20 10^6/uL (4.20-5.40) 07/31/24 05:25
Hgb 9.3 g/dL (12.0-16.0) L 07/31/24 05:25
Hct 28.3 % (37.0-47.0) L 07/31/24 05:25
MCV 67.4 fL (81.0-99.0) L 07/31/24 05:25
MCH 22.1 pg (27.0-31.0) L 07/31/24 05:25
MCHC 32.9 g/dL (33.0-37.0) L 07/31/24 05:25
RDW 14.6 % (11.5-14.5) H 07/31/24 05:25
Plt Count 155 10^3/uL (130-400) 07/31/24 05:25
MPV 10.8 fL (7.4-10.4) H 07/31/24 05:25
Abs Immat Gran (auto) 0.1 10^3/uL (0-0.05) H 07/30/24 09:36
Absolute Neuts (auto) 11.0 10^3/uL (1.4-6.5) H 07/30/24 09:36
Absolute Lymphs (auto) 2.4 10^3/uL (1.2-3.4) 07/30/24 09:36
Absolute Monos (auto) 0.9 10^3/uL (0.1-0.6) H 07/30/24 09:36
Absolute Eos (auto) 0.1 10^3/uL (0-0.7) 07/30/24 09:36
Absolute Basos (auto) 0.1 10^3/uL (0-0.2) 07/30/24 09:36
Immature Gran % 0.5 % (0-0.5) 07/30/24 09:36
Neutrophils % 75.3 % (42.2-75.2) H 07/30/24 09:36
Lymphocytes % 16.6 % (20.5-51.1) L 07/30/24 09:36
Monocytes % 6.4 % (1.7-9.3) 07/30/24 09:36
Eosinophils % 0.8 % (0-6) 07/30/24 09:36
Basophils % 0.4 % (0-2) 07/30/24 09:36
Creatinine 0.7 mg/dL (0.6-1.0) 07/31/24 05:25
Vital Signs
Vital Signs
Temp Pulse Resp BP Pulse Ox
98.8 F 80 20 106/61 99
07/31/24 12:16 07/31/24 12:16 07/31/24 12:16 07/31/24 12:16 07/31/24 13:55
--- NOTE | 2024-07-31 16:33 | PTCARENOTE ---
Assessment unchanged and ongoing, Ambulate vides. Heparin gtt continues. Follow up PTT. Continue with teaching. Heme/Onc consult at [facility]. Continue follow up labs and orders. Will continue to monitor.
[2024-07-31] MEDS: HEPARIN 5400 UNITS IV (17:02)
--- NOTE | 2024-07-31 17:37 | W.PN.UPDATE ---
Update Note
Progress Note Update
Pt seen and examined. Chart reviewed. Pt feeling much better. OOB to chair. State she gets winded with ambulation. PA pressures down to 15.
Abdomen flat Incision CDI. Umbilicus pink. Drains with minimal serosang
POD7 s/p abdominoplasty miguelangel waist with PE s/p IR lysis.
Doing very well. I am thrilled to see her in such great condition.
Greatly appreciate packer and carry out, IR, pulmonary input.
Will resume compression garment once OK by above. Maintain drains. Ambulate. ABX.
--- NOTE | 2024-07-31 20:05 | PTCARENOTE ---
Pt resting in chair with family at bedside. Ambulated in hallway with nurse. No c/o pain. Afebrile. NSR on monitor. Right IV line painful, discontinued. Left IV line from EMS. Discontinued. New line placed, heparin gtt as ordered. Ptt @2300. Room
air, clear. Tolerating regular diet. Voiding in bathroom. Will monitor.
[2024-07-31] MEDS: DESYREL 100 MG PO (22:56)
[2024-07-31 23:44] LABS: APTT 118.5 Sec (23.4-35.0)
[2024-08-01 06:13] VITALS: BP 112/65
[2024-08-01 06:59] LABS: Hematocrit 28.6 % (37.0-47.0); Hemoglobin 9.4 g/dL (12.0-16.0); Mean Corp Hgb Conc. 32.9 g/dL (33.0-37.0); Mean Corpuscular Hgb 22.4 pg (27.0-31.0); Mean Corpuscular Volume 68.3 fL (81.0-99.0); Mean Platelet Volume 10.4 fL (7.4-10.4); Platelet Count 178 10^3/uL (130-400); Red Blood Cell Count 4.19 10^6/uL (4.20-5.40); Red Cell Dist. Width 14.7 % (11.5-14.5); White Blood Cell Count 6.5 10^3/uL (4.8-10.8)
[2024-08-01 07:11] LABS: APTT 94.1 Sec (23.4-35.0)
--- NOTE | 2024-08-01 07:14 | W.PN.PUL3 ---
Today's Communication / Plan
-
No new events, stable on RA
Tolerating Eliquis, no new issues
Outpatient pulmonary FU recommended, placed in chart
Ok with discharge planning per team
Assessment
-
54-year-old female non-smoker with a past medical history of depression, anxiety, chronic seasonal allergic rhinitis, history of IBS with constipation, thalassemia minor minor, celiac disease, history of colon polyps, overactive bladder and recent
abdominoplasty 6 days ago now presents from home with syncopal event. She had a tummy tuck about 6-7 days ago. In the ER she was afebrile to 97.6 �F, tachycardic to 107, hypotensive to 91/53, and saturating 93% on 2 L/min nasal cannula. Labs
showed leukocytosis to 14.6, anemia to 10.1, and hyperglycemic to 264. CTA chest, CT abdomen/pelvis with IV contrast was obtained. CTA chest shows bilateral acute PE with large clot burden especially on the right with RV strain. Also hepatic +
right renal cyst. She was started on IV heparin, and PERT alert called. She is now being brought for IR intervention and then being admitted to the ICU for further monitoring. Correctional Counselor/pulmonary service is consulted for additional
management/recommendations.
Acute massive bilateral pulmonary embolism with RV strain - suspect provoked due to combined oral contraceptive use with recent abdominoplasty
Elevated troponin likely due to above
LLE DVT-nonocclusive
Recent abdominoplasty s/p childbirth c/b diastasis recti
Menopausal on combined oral contraceptives
Leukocytosis likely reactive
Hyperglycemia
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
Depression, anxiety
Chronic seasonal allergic rhinitis
History of IBS with constipation
Celiac disease
Overactive bladder
Vitamin D deficiency
Colon polyps
Anemia with history of thalassemia minor
Plan
s/p tPA by IR 07/30/24
Sheath removed
Transitioned to Eliquis, tolerating well
Stable on RA
No prior history of lung disease
prn nebulized bronchodilators - not currently bronchospastic
Incentive spirometer encouraged
Massive PE with strain on presentation
Echo reviewed RV enlargement but overall preserved function
Continue to trend troponin until it peaks
Check LE duplex-- Positive for LLE DVT
Eventual outpatient hematology evaluation for hypercoagulable workup
Maintain MAP>65
Replete electrolytes with K>4, Mg>2
Maintain euglycemia with goal BG 140-180
History of anemia
Hb 9.3 from 10.1, baseline 11
Trend H/H and transfuse if needed to keep Hb>7g/dL; kep plt>20k, unless there is concern for bleeding then keep plt>50k
OOB/ambulating
Outpatient pulmonary FU recommended
Discharge planning per team
Diagnostic Data
CTA Chest/CT Abd/Pelvis with IV contrast 07/30/2024: 1).There are large bilateral central pulmonary emboli including a bandlike area of subtle embolus extending across the main pulmonary artery
2). There are hepatic and right renal cysts
Duplex 07/30/24- IMPRESSION: Nonocclusive thrombus within the gastrocnemius vein within the left calf, in this patient with pulmonary embolism.
ECHO 07/31/24: Normal left ventricular size, wall thickness and systolic function. LV ejection fraction is 65-70%. Enlarged right ventricular size. Normal right ventricular systolic function. Trace tricuspid regurgitation. Normal PASP. No prior
study available for comparison.
Subjective Data
-
Date of Service:
Date of Service: August 01, 2024
Chief Complaint: Pulmonary Follow Up
Subjective:
Doing well, stable on RA
No new complaints
Ambulating well in room
Tolerating Eliquis
Objective Data
Data Reviewed
Vital Signs / I&O / Oxygen:
Vital Signs
Temp Pulse Resp BP Pulse Ox
98.7 F 71 16 112/65 98
08/01/24 03:27 08/01/24 06:15 08/01/24 06:15 08/01/24 06:13 07/31/24 16:05
Intake and Output
07/31/24 08/01/24 08/02/24
06:59 06:59 06:59
Intake Total 4282 / 4448 2347 / 2347
Output Total 3360 / 5310 5130 / 5130
Balance 922 / -862 -2783 / -2783
SaO2 98
Nasal Cannula flow liters per 3
minute
Physical Exam
General: Comfortable and Other (NAD)
HEENT: Normocephalic, Anicteric and Moist Mucous Membranes
Cardiovascular: S1-S2 and Regular Rhythm
Respiratory: Clear and Non-Labored Respirations
GI: Soft, Non Distended and Tender
Neurology: Awake, Alert, Oriented and No Motor Deficits
Skin: Warm, Dry and Good Color
Labs/Micro/Reports
Lab Data
08/01/24 06:06
Laboratory Results
07/31/24 07/31/24 07/31/24
12:00 16:18 18:00
PT Cancelled Cancelled
INR Cancelled Cancelled
APTT 43.0 H
07/31/24
23:01
PT
INR
APTT 118.5 H
[2024-08-01 07:34] LABS: Blood Urea Nitrogen 13 mg/dl (7-17); Calcium 8.9 mg/dl (8.4-10.2); Carbon Dioxide 26 mmol/L (22-30); Chloride 104 mmol/L (98-107); Glucose 101 mg/dl (70-99); Iron 62 ug/dl (37-170); Potassium 4.2 mmol/L (3.5-5.1); Sodium 140 mmol/L (135-145); eGFR > 60.00
[2024-08-01 07:43] LABS: Percent Saturation 24 % (20-50); Total Iron Binding Capacity 249 ug/dl (265-497)
--- NOTE | 2024-08-01 07:57 | W.PN.HOSP.TC ---
Today's Communication/Plan
-
anticipate DC today after seen by Gambling Dealer
Assessment / Plan
Assessment / Plan
MS. Jeannie Felton is a 54 yo woman with hx Depression/anxiety, thalassemia minor, celiac disease, recent abdominoplasty 6 days ago on prophylactic antibiotics presents to the ER with syncope and calf pain, found to be hypoxic on arrival with CTA
showing bilateral acute PE with large clot burden and RV Strain.
LE US 07/30:
IMPRESSION: Nonocclusive thrombus within the gastrocnemius vein within the left calf, in this patient with pulmonary embolism.
IMPRESSION:
1).There are large bilateral central pulmonary emboli including a bandlike area of subtle embolus extending across the main pulmonary artery
2). There are hepatic and right renal cysts
Catheter Check 07/31: Repeat pressure check of 15/4 mmHg (map 8). Significantly improved compared to yesterday (45/6).
TTE 07/31:
CONCLUSIONS
Normal left ventricular size, wall thickness and systolic function. LV ejection
fraction is 65-70%.
Enlarged right ventricular size. Normal right ventricular systolic function.
Trace tricuspid regurgitation. Normal PASP.
LE US:
IMPRESSION: Nonocclusive thrombus within the gastrocnemius vein within the left calf, in this patient with pulmonary embolism.
#Submassive pulmonary embolisms
Hypoxic Respiratory Insufficiency
� Culprit is recent postsurgical complication as well as being on progesterone/estradiol, family history
� CTA with bilateral acute PE with large clot burden, with evidence of RV strain on CT
� s/p Catheter directed thrombolysis 07/30; catheter check 07/31 with improvement of PA pressures 15/4
� *transition to Eliquis today
- TTE results above
- Gambling Dealer consult
� Pain control
-hold CPHT estradiol/progesterone
# Nonischemic troponin elevation
- troponion peaked at 1.140
#Leukocytosis
� Mostly reactive, resolved
#Abdominoplasty
- now 8 days post op
� Plastic surgery on board
� Continue prophylactic antibiotics
#Hepatic and right renal cyst
� Follow-up outpatient
#DVT prophylaxis
eliquis
Anticipated Discharge: Today
Subjective/Interval History
-
Date of Service: August 01, 2024
feeling well
ambulated yesterday without significant shortness of breath, feels mildly weak
Objective Data
-
Labs:
Laboratory Results
07/31/24 08/01/24 08/01/24
23:01 06:06 12:00
WBC 6.5
Hgb 9.4 L
Hct 28.6 L
Plt Count 178
APTT 118.5 H 94.1 H Pending
Sodium 140
Potassium 4.2
Chloride 104
Carbon Dioxide 26
BUN 13
Creatinine 0.8
Glucose 101 H
Calcium 8.9
Vital Signs:
Vital Signs
Temp Pulse Resp BP Pulse Ox
98.4 F 71 16 112/65 98
08/01/24 07:38 08/01/24 06:15 08/01/24 06:15 08/01/24 06:13 07/31/24 16:05
I&O
07/31/24 08/01/24 08/02/24
06:59 06:59 06:59
Intake Total 4282 / 4448 2347 / 2347
Output Total 3360 / 5310 5130 / 5130
Balance 922 / -862 -2783 / -2783
Review of Systems
-
History Source: Patient
All other systems: Reviewed and negative
Physical Exam
-
General: No Apparent Distress
HEENT: PERRLA
Respiratory: Clear to Auscultation; Negative Wheezes
Cardiac: Regular Rhythm and S1/S2
GI: Soft and Nontender
Musculoskeletal: No Edema and Other (right groin without hematoma )
Skin: Warm and Dry; Negative Rash
Neuro: AO x 3
Psych: Calm
Data Reviewed
-
Diagnostic Radiology: Report Reviewed by me
Labs: Labs Reviewed by me
[2024-08-01 08:09] LABS: Ferritin 45.6 ng/ml (11.1-264.0)
--- NOTE | 2024-08-01 08:10 | PTCARENOTE ---
Assumed care of pt at 0715 following shift report. Pt awake and sitting up in bed, visiting w/ son in room. Denies c/o pain or SOB. POx 99% on RA. Heparin gtt infusing at 1400 units/hr per order. Physical assessment completed. Call ocasio remains w/in
pt reach and safe environment maintained.
--- NOTE | 2024-08-01 08:18 | W.DS.TRANS ---
DC Summary - Medical Transcriptionist
-
Discharge Instructions:
Discharge Diagnosis/Procedures pulmonary embolism
Diet Regular
Activity As tolerated
Driving Restrictions As prior to admission
Bathing Restrictions None
Instructions:
Stand-Alone Forms:
Changes to Home Medications: Yes
Discharge Medications:
DC Medications w/original date entered in [facility]
trazodone 100 mg tablet 100 mg PO HS 07/30/24
apixaban 5 mg tablet (Eliquis) 5 mg PO BID #180 tabs 08/01/24
cefuroxime axetil 250 mg tablet 500 mg (2 x 250 mg) PO BID #14 tabs 08/01/24
fluoxetine 20 mg capsule (Prozac) 30 mg (1.5 x 20 mg) PO DAILY #0 caps 08/01/24
Home Medication Changes
stop estrogen and progesterone
new start Eliquis
Pending Results: No
--- NOTE | 2024-08-01 08:33 | W.PN.ONC ---
Today's Communication / Plan
-
Provoked VTE, 1st lifetime event -on heparin gtt, recommend 6 months DOAC at discharge
avoid hormone use, discussed - she will f/u with Dr. Hendricks to discuss other options
If menopausal symptoms are intolerable off HRT, would continue DOAC (ie, low dose 2.5mg bid after completion of 6 month treatment course) for the duration of HRT use
No iron deficiency - anemia is from thal minor, surgery
With provoked VTE and first VTE, no indication for thrombophilia testing
f/u with PMD
Routine malignancy screening with PCP
Hematology will sign off, thank you for this consult
Impression
Impression
Acute massive bilateral pulmonary embolism with RV strain - suspect provoked due to combined oral contraceptive use with recent abdominoplasty
Elevated troponin
LLE nonocclusive gastrocnemius thrombus
Recent abdominoplasty
Menopausal on combined oral contraceptives
Anemia with history of thalassemia minor, recent surgery, and celiac disease
Plan
Plan
Provoked VTE, 1st lifetime event -on heparin gtt, recommend 6 months DOAC at discharge
avoid hormone use, discussed - she will f/u with Dr. Hendricks to discuss other options
If menopausal symptoms are intolerable off HRT, would continue DOAC (ie, low dose 2.5mg bid after completion of 6 month treatment course) for the duration of HRT use
No iron deficiency - anemia is from thal minor, surgery
With provoked VTE and first VTE, no indication for thrombophilia testing
f/u with PMD
Routine malignancy screening with PCP
Hematology will sign off, thank you for this consult
Subjective/Objective
Subjective/Objective
feels well, eager to go home pending insurance check on DOAC coverage
Vital Signs:
Vital Signs
Temp Pulse Resp BP Pulse Ox
98.4 F 71 16 112/65 98
08/01/24 07:38 08/01/24 06:15 08/01/24 06:15 08/01/24 06:13 07/31/24 16:05
Lab Results:
Laboratory Data
WBC 6.5 10^3/uL (4.8-10.8) 08/01/24 06:06
Hgb 9.4 g/dL (12.0-16.0) L 08/01/24 06:06
Plt Count 178 10^3/uL (130-400) 08/01/24 06:06
PT Cancelled 07/31/24 18:00
INR Cancelled 07/31/24 18:00
APTT 94.1 Sec (23.4-35.0) H 08/01/24 06:06
eGFR > 60.00 08/01/24 06:06
[2024-08-01 08:36] VITALS: BP 118/63
[2024-08-01] MEDS: KEFLEX 500 MG PO (08:40)
[2024-08-01] MEDS: ELIQUIS 10 MG PO (09:19)
[2024-08-01] MEDS: PROZAC 30 MG PO (09:19)
--- NOTE | 2024-08-01 11:00 | PTCARENOTE ---
Heparin gtt d/c'ed at time of Eliquis administration. Pt placed on Tele pack and ambulating independently to BR to void- gait steady. Items provided to pt for AM hygiene. Pt continues to deny c/o pain or SOB, including w/ increased activity.
--- NOTE | 2024-08-01 11:57 | CM ---
Patient is for discharge to home today, copay for Eliquis is $35 per month, patient made aware and Eliquis coupon provided to patient.
Plan; Home today no needs.
[2024-08-01 13:01] VITALS: BP 105/51
--- NOTE | 2024-08-01 13:30 | PTCARENOTE ---
Pt discharged to home- staff escort via to hospital exit, son providing transportation home. Pt's IV site d/c'ed prior to discharge and pt in possession of and verbalized understanding of discharge instructions. Pt in possession of Eliquis
coupon. No changes noted prior to discharge and no complaints received.
--- NOTE | 2024-08-01 13:45 | W.DCSUMMARY ---
Discharge Summary
Discharge Data
Date of Admission: 07/30/24
Date of Discharge: 08/01/24
-
Pending Results: No
Hospital Course
Discharging Physician : Dr. Jeanine Sewell
Disposition : Home
Primary care physician : Dr. Edd Arreola
Principal Discharge diagnosis : submassive pulmonary embolism
Hospital Course :
Ms. Jeannie Felton is a 54 yo woman with hx Depression/anxiety, thalassemia minor, celiac disease, recent abdominoplasty 6 days ago on prophylactic antibiotics presents to the ER with syncope and calf pain, found to be hypoxic on arrival with CTA
showing bilateral acute PE with large clot burden and RV Strain. She underwent catheter directed thrombolysis with follow up study showing improvement of PA pressures. Transitioned from heparin gtt to Eliquis. Off oxygen on time of discharge and
symptoms of shortness of breath much improved.
Patient is told to stop HRT on discharge and follow up closely with her Still Operator Gin. She has follow up with her plastic surgeon tomorrow, told to continue her STITCHER OPERATOR prophylactic antibiotics. She will also follow up with Pulmonary.
Per Dr. Avila, if menopausal symptoms intolerable off HRT, would continue DOAC (2.5mg PO BID) after completion of 6 month treatment course.
Time spent on discharge was 35 minutes.
Important imaging findings :
LE US 07/30:
IMPRESSION: Nonocclusive thrombus within the gastrocnemius vein within the left calf, in this patient with pulmonary embolism.
CT
IMPRESSION:
1).There are large bilateral central pulmonary emboli including a bandlike area of subtle embolus extending across the main pulmonary artery
2). There are hepatic and right renal cysts
Catheter Check 07/31: Repeat pressure check of 15/4 mmHg (map 8). Significantly improved compared to yesterday (45/6).
Procedure findings :
Discharge Plan
-
Patient Disposition: Home (Routine Discharge)
Discharge Diagnosis/Procedures: pulmonary embolism
Diet: Regular
Activity: As tolerated
Driving Restrictions: As prior to admission
Bathing Restrictions: None
Activity Restrictions/Additional Instructions:
Contact Dr Gutierrez's office for follow-up appointment.
Referrals:
Rosmery Montenegro MD [Active] - None
Catarina Fontaine, [Active] - in four to six weeks (PFTs)
Edd Arreola DO [Family Provider] - in less than 1 week
Chi Gutierrez DO [Active] -
Karen Hendricks MD [Active] - (Please call to make follow up appointment post hospitalization )
Additional Discharge Medication Instructions: Eliquis Dosing:
Take 2 tabs (10mg) twice a day x first 7 days then decrease to 1 tab (5mg) twice a day (on 08/08/24). You will need at least 6 months of anticoagulation, this prescription will need to be refilled.
Stop Estrogen and Progesterone
Take antibiotics as prescribed by Dr. Gutierrez (I am not making any changes)
Prescriptions:
New
Eliquis 5 mg Tablet
5 mg PO BID Qty: 180 0RF
Rx Instructions:
Take 10mg (2 tabs) twice a day x 7 days then on morning of 08/08 start 5mg (1 tab) twice a day
Continued
trazodone 100 mg Tablet
100 mg PO HS
Rx Instructions:
100mg po QHS
Changed
cefuroxime axetil 250 MG tablet
500 mg PO BID Qty: 14 0RF
Rx Instructions:
Cefatriaxone 250mg BID post op for 7days
fluoxetine [Prozac] 20 mg Capsule
30 mg PO DAILY Qty: 0 0RF
Rx Instructions:
30 mg po daily am
Discontinued
estradiol 1 mg Tablet
1 mg PO DAILY
Patient Comments:
Pt unsure of dose calling her family
Rx Instructions:
QHS
progesterone
Discharge Orders:
Discharge Patient (As Directed); Ordered 08/01/24
Ordered By: Jeanine Sewell
Discharge Date and Time
Print Language: FRENCH
== END 2024-08-01 13:30 | disposition home or self-care (01) | DRG 250 ==
LOC: ICU 11:30
PROVIDERS: Nurse Practitioner Acute Care; Nurse Practitioner Family; Nurse Practitioner Primary Care; Physician Assistant; Radiology Diagnostic Radiology; ADMITTING PHYSICIAN Internal Medicine; ATTENDING PHYSICIAN Student in an Organized Health Care Education/Training Program; CONSULT PHYSICIAN Internal Medicine Critical Care Medicine; EMERGENCY PHYSICIAN Emergency Medicine; FAMILY PHYSICIAN Family Medicine
PROC: 5A0935A Assistance with Respiratory Ventilation, Less than 24 Consecutive Hours, High Flow/Velocity Cannula (ICD-10-PCS; 2024-07-30)
PROC: 3E06317 Introduction of Other Thrombolytic into Central Artery, Percutaneous Approach (ICD-10-PCS; 2024-08-01)
PROC: 02FQ3Z0 Fragmentation of Right Pulmonary Artery, Percutaneous Approach, Ultrasonic (ICD-10-PCS; 2024-08-01)
DX: T81.718A Complication of other artery following a procedure, not elsewhere classified, initial encounter (principal); I26.92 Saddle embolus of pulmonary artery without acute cor pulmonale; D69.6 Thrombocytopenia, unspecified; F32.A Depression, unspecified; D56.3 Thalassemia minor; D72.829 Elevated white blood cell count, unspecified; F41.9 Anxiety disorder, unspecified; I45.10 Unspecified right bundle-branch block; K90.0 Celiac disease; N28.1 Cyst of kidney, acquired; R09.02 Hypoxemia; N32.81 Overactive bladder; E55.9 Vitamin D deficiency, unspecified; J30.2 Other seasonal allergic rhinitis; K58.1 Irritable bowel syndrome with constipation; I95.9 Hypotension, unspecified; M79.662 Pain in left lower leg; R73.9 Hyperglycemia, unspecified; Z98.890 Other specified postprocedural states; Z79.890 Hormone replacement therapy; Z79.899 Other long term (current) drug therapy; Z87.891 Personal history of nicotine dependence; Z82.49 Family history of ischemic heart disease and other diseases of the circulatory system
CPT/HCPCS: 36015; 37211; 37214; 71275; 74177; 75741; 76937; 80048; 80053; 82728; 83036; 83540; 83550; 83735; 83880; 84484; 85014; 85018; 85025; 85027; 85379; 85384; 85610; 85730; 86850; 86900; 86901; 93005; 93306; 93971; 96361; 96374; 99291; C1769; J2997; Q9967

== ENCOUNTER → 2024-10-27 08:06 | Outpatient (REF) | payer BC, SELFPAY | LOC: RAD 08:06 | PROVIDERS: ATTENDING PHYSICIAN Nurse Practitioner Family; FAMILY PHYSICIAN Family Medicine | DX: Z86.718 Personal history of other venous thrombosis and embolism (principal) | CPT/HCPCS: 93306; 93971 ==

== ENCOUNTER 2025-08-23 06:23 | Day surgery (SDC) | payer BC, SELFPAY | END 2025-08-23 11:04 | disposition home or self-care (01) | LOC: GI 06:23 | PROVIDERS: ATTENDING PHYSICIAN Internal Medicine Gastroenterology | DX: R12 Heartburn (principal); R13.10 Dysphagia, unspecified; K44.9 Diaphragmatic hernia without obstruction or gangrene; K31.89 Other diseases of stomach and duodenum | CPT/HCPCS: 43239; 88305; 88342 ==